=== PATIENT | male | born 1990 | race Two or more races ===

== ENCOUNTER 2019-01-20 14:42 | Emergency (ER) | payer MEDICAID, OTHER ==
[~2019-01-20] VITALS: Ht 167.6 cm; Wt 77.1 kg
[2019-01-20 15:02] VITALS: BP 150/95
== END 2019-01-20 15:50 | disposition home or self-care (01) ==
LOC: ER 14:42
DX: M54.2 Cervicalgia (principal); Z59.0 Homelessness